=== PATIENT | male | born 1945 | race African-American/Black ===

== ENCOUNTER 2016-12-27 13:51 | Emergency (ER) | payer BC ==
[~2016-12-27] VITALS: Ht 182.9 cm; Wt 83.9 kg
[2016-12-27 14:42] LABS: KETONES,URINE Negative (NEGATIVE); LEUKOCYTE ESTERASE ,URINE Negative (NEGATIVE)
[2016-12-27 14:42] LABS: BASOPHILS % (AUTO) 0.2 % (0.0-2.0); DIFF TOTAL % 100 %; EOSINOPHILS # (AUTO) 0.2 /CMM (0.0-0.7); EOSINOPHILS % (AUTO) 2.5 % (0.0-6.0); HEMATOCRIT 35 % (39-51); HEMOGLOBIN 11.2 g/dL (13.5-17.5); LYMPHOCYTES # (AUTO) 1.3 /CMM (0.8-4.8); LYMPHOCYTES % (AUTO) 16.1 % (20.0-44.0); MEAN CORPUSCULAR HEMOGLOBIN 28 PG (26.0-33.0); MEAN CORPUSCULAR HGB CONC 32 g/dl (31.0-36.0); MEAN CORPUSCULAR VOLUME 89 fL (80-96); MONOCYTES # (AUTO) 0.4 /CMM (0.1-1.30); MONOCYTES % (AUTO) 5.4 % (2.0-12.0); NEUTROPHILS # (AUTO) 6.3 /CMM (1.8-8.9); NEUTROPHILS % (AUTO) 75.8 % (43.0-81.0); PLATELET COUNT (AUTO) 315 /CMM (150-450); RED BLOOD CELL COUNT(AUTO) 3.95 MIL/uL (4.5-6.0); WHITE BLOOD COUNT (AUTO) 8.2 K/uL (4.3-11.0)
[2016-12-27 14:43] LABS: ADD UA MICROSCOPIC YES
[2016-12-27 14:53] LABS: CALCIUM, SERUM 9.2 mg/dL (8.5-10.1); CREATININE 1.6 mg/dL (0.6-1.3); POTASSIUM 4.8 mmol/L (3.5-5.1)
[2016-12-27 15:09] LABS: RBC,URINE 0-2 /HPF (0-2); WBC,URINE 0-2 /HPF (0-3)
[2016-12-27 15:10] LABS: ADD URINE CULTURE NO
[2016-12-27 16:25] VITALS: BP 137/82
== END 2016-12-27 16:26 | disposition home or self-care (01) ==
LOC: ER 13:55
DX: G93.40 Encephalopathy, unspecified (principal); M17.9 Osteoarthritis of knee, unspecified; I10 Essential (primary) hypertension; R82.99 Other abnormal findings in urine
CPT/HCPCS: 36415; 73564; 80048; 81001; 85025; 87086; 99285; A4606; 81000-TC; Z7610

== ENCOUNTER 2017-09-02 18:00 | Emergency (ER) | payer MEDICARE, OTHER ==
[~2017-09-02] VITALS: Ht 182.9 cm; Wt 76.2 kg
--- NOTE | 2017-09-02 18:00 | NUR ---
TIA Mccormack FROM [facility] FOR COUGH WITH CONGESTION, GENERALIZED BODY ACHES, NAD NOTED, VSS, PT PUT ON MONITOR, WAITING FOR MD LOPEZ.
[2017-09-02 19:18] LABS: BASOPHILS # (AUTO) 0.1 /CMM (0.0-0.2); BASOPHILS % (AUTO) 0.9 % (0.0-2.0); EOSINOPHILS # (AUTO) 0.3 /CMM (0.0-0.7); EOSINOPHILS % (AUTO) 4.2 % (0.0-6.0); HEMATOCRIT 37 % (39-51); HEMOGLOBIN 11.9 g/dL (13.5-17.5); LYMPHOCYTES # (AUTO) 2.1 /CMM (0.8-4.8); LYMPHOCYTES % (AUTO) 29.6 % (20.0-44.0); MEAN CORPUSCULAR HEMOGLOBIN 29 PG (26.0-33.0); MEAN CORPUSCULAR HGB CONC 32 g/dl (31.0-36.0); MEAN CORPUSCULAR VOLUME 91 fL (80-96); MONOCYTES # (AUTO) 0.3 /CMM (0.1-1.30); MONOCYTES % (AUTO) 3.6 % (2.0-12.0); NEUTROPHILS # (AUTO) 4.4 /CMM (1.8-8.9); NEUTROPHILS % (AUTO) 61.7 % (43.0-81.0); PLATELET COUNT (AUTO) 204 /CMM (150-450); RDW COEFFICIENT OF VARIATION 13.1 (11.5-15.0); RED BLOOD CELL COUNT(AUTO) 4.03 MIL/uL (4.5-6.0); WHITE BLOOD COUNT (AUTO) 7.2 K/uL (4.3-11.0)
[2017-09-02 19:28] LABS: CALCIUM, SERUM 9.1 mg/dL (8.5-10.1); CREATININE 2.4 mg/dL (0.6-1.3); POTASSIUM 4.9 mmol/L (3.5-5.1)
[2017-09-02 19:30] LABS: INR 0.93 (0.87-1.13); PROTHROMBIN TIME 9.7 SECS (9.5-12.7)
[2017-09-02 19:34] LABS: ALBUMIN 2.6 g/dL (3.4-5.0); BILIRUBIN,TOTAL 0.1 mg/dL (0.2-1.0)
[2017-09-02 19:36] LABS: TROPONIN I 0.053 ng/mL (0.00-0.056)
[2017-09-02] MEDS ORDERED: IV NS 0.9% 500 ML BAG IV ONE (20:30)
[2017-09-02 21:08] LABS: APPEARANCE,URINE CLEAR (CLEAR); BILIRUBIN,URINE NEGATIVE (NEGATIVE); BLOOD, URINE 1+ Ery/uL (NEGATIVE); COLOR,URINE YELLOW (YELLOW); KETONES,URINE NEGATIVE (NEGATIVE); LEUKOCYTE ESTERASE ,URINE NEGATIVE (NEGATIVE); NITRITE, URINE NEGATIVE (NEGATIVE); PROTEIN,URINE 3+ mg/dl (NEGATIVE); UGLUCOSE NEGATIVE (NEGATIVE); UROBILINOGEN,URINE 0.2 EU/dL (0.2)
[2017-09-02 21:25] LABS: BACTERIA,URINE Moderate /HPF (None Seen); SQUAMOUS EPITHELIAL CELL,UR Moderate /HPF (None Seen); WBC,URINE 0-2 /HPF (0-3)
[2017-09-02 22:16] VITALS: BP 161/90
--- NOTE | 2017-09-02 22:45 | NUR ---
[facility]
== END 2017-09-02 22:58 | disposition home or self-care (01) ==
LOC: ER 18:00
DX: E86.0 Dehydration (principal); D64.9 Anemia, unspecified; B34.9 Viral infection, unspecified; F20.9 Schizophrenia, unspecified; I13.0 Hypertensive heart and chronic kidney disease with heart failure and stage 1 through stage 4 chronic kidney disease, or unspecified chronic kidney disease; I50.9 Heart failure, unspecified; N18.9 Chronic kidney disease, unspecified; G93.40 Encephalopathy, unspecified; Z86.73 Personal history of transient ischemic attack (TIA), and cerebral infarction without residual deficits
CPT/HCPCS: 36415; 51701; 71010; 80048; 80076; 81001; 83605; 84484; 85025; 85730; 87040 ×2; 87086; 93005; 99285; A4606; J7040; 81000-TC; Z7610